=== PATIENT | male | born 1985 | race Caucasian/White ===

== ENCOUNTER 2024-05-27 16:24 | Outpatient (CLI) | payer BC, SELFPAY ==
[2024-05-27 17:38] LABS: Hemoglobin A1C 5.3 % (4.0-6.0)
[2024-05-27 17:51] LABS: Alanine Aminotransferase 41 U/L (12-78); Albumin Level 4.6 g/dl (3.5-5.0); Albumin/Globulin Ratio 1.4 (1.1-1.8); Alkaline Phosphatase 73 U/L (38-126); Anion Gap 12.1 mEq/L (5-15); Aspartate Amino Transferase 37 U/L (17-59); Bilirubin,Total 0.5 mg/dl (0.2-1.3); Blood Urea Nitrogen 13 mg/dl (9-20); Calcium 9.4 mg/dl (8.4-10.2); Carbon Dioxide 27 mmol/L (22.0-30.0); Chloride 107 mmol/L (98-107); Chol/HDL Ratio 6.4 (1-3.5); Cholesterol 235 mg/dl (140-200); Estimated Glomerular Filt Rate 93 ml/min (>60); GFR (African American) 113 ML/MIN (>60); Globulin 3.4 g/dL (1.3-3.2); Glucose 86 mg/dl (74-100); HDL Cholesterol 37 mg/dl (40-60); Potassium 5.1 mmoL/L (3.5-5.1); Sodium 141 mmol/L (136-145); Triglycerides 275 mg/dl (30-150); VLDL Cholesterol 55 mg/dL (0-40)
[2024-05-27 18:03] LABS: Direct LDL Cholesterol 140.45 mg/dL (100-129)
[2024-05-27 18:21] LABS: Thyroid Stimulating Hormone 2.57 uIU/mL (0.465-4.68)
[2024-05-27 18:41] LABS: Vitamin B12 794 pg/mL (239-931)
== END 2024-05-27 23:59 | disposition home or self-care (01) ==
LOC: LAB.DROPOF 05-28 09:04
PROVIDERS: PCP Nurse Practitioner Family; Visit Provider Nurse Practitioner Family
DX: R63.5 Abnormal weight gain (principal); Z13.220 Encounter for screening for lipoid disorders; Z68.41 Body mass index [BMI] 40.0-44.9, adult
CPT/HCPCS: 80053; 80061; 82607; 83036; 84443

== ENCOUNTER 2024-06-28 13:42 | Outpatient (CLI) | payer BC, SELFPAY ==
[2024-06-28 13:25] LABS: Basophils % 0.7 % (0.1-2.0); Eosinophils # 0.3 K/mm3 (0.0-0.4); Eosinophils % 5.6 % (0.1-12.0); Hematocrit 50.5 % (42.0-52.0); Hemoglobin 16.4 g/dL (14.1-18.0); Lymphocytes # 2.2 K/mm3 (0.7-4.5); Lymphocytes % 36.9 % (10-50); Mean Corpuscular HGB Conc 32.5 g/dL (31.8-35.4); Mean Corpuscular Hemoglobin 30.6 pg (27.0-31.2); Mean Corpuscular Volume 94.3 fl (80-94); Monocytes # 0.4 K/mm3 (0.1-1.0); Neutrophils # 2.9 K/mm3 (1.8-7.8); Neutrophils % 49.7 % (37.0-80.0); Platelet Count 198 K/mm3 (142-424); Red Blood Count 5.35 M/mm3 (4.60-6.20); Red Cell Distribution Width 12.8 % (11.5-17.5); White Blood Count 5.8 K/mm3 (4.8-10.8)
[2024-06-28 13:45] LABS: Alanine Aminotransferase 36 U/L (12-78); Albumin Level 4.8 g/dl (3.5-5.0); Albumin/Globulin Ratio 1.7 (1.1-1.8); Alkaline Phosphatase 57 U/L (38-126); Amylase 80 U/L (30-110); Anion Gap 12.3 mEq/L (5-15); Aspartate Amino Transferase 36 U/L (17-59); Bilirubin,Total 0.8 mg/dl (0.2-1.3); Blood Urea Nitrogen 16 mg/dl (9-20); Calcium 9.5 mg/dl (8.4-10.2); Carbon Dioxide 26 mmol/L (22.0-30.0); Chloride 104 mmol/L (98-107); Estimated Glomerular Filt Rate 107 ml/min (>60); GFR (African American) 129 ML/MIN (>60); Globulin 2.8 g/dL (1.3-3.2); Glucose 78 mg/dl (74-100); Lipase 83 U/L (23-300); Potassium 4.3 mmoL/L (3.5-5.1); Sodium 138 mmol/L (136-145); Total Protein,Serum 7.6 g/dl (6.3-8.2)
== END 2024-06-28 23:59 | disposition home or self-care (01) ==
LOC: LAB.DROPOF 13:43
PROVIDERS: PCP Internal Medicine; Visit Provider Internal Medicine
DX: R10.9 Unspecified abdominal pain (principal); Z00.00 Encounter for general adult medical examination without abnormal findings
CPT/HCPCS: 80053; 82150; 83690; 85025